=== PATIENT | male | born 1995 | race Caucasian/White ===

== ENCOUNTER 2017-02-04 18:57 | Emergency (ER) | payer BC ==
[~2017-02-04] VITALS: Ht 172.7 cm; Wt 164.7 kg
[~2017-02-04 18:57] MED LIST: BUPR150T11 PO; CITA40TA5 PO; CYCL10TA2 PO; NAPR500T8 PO; PAIN; PHEN30CA2 PO; TRAM50TA PO; anti inflammatory; muscle relaxer
[2017-02-04 19:15] VITALS: BP 116/63
[2017-02-04] MEDS ORDERED: PRED20TA PO (19:54)
[2017-02-04] MEDS ORDERED: CYCL10TA2 PO (19:54)
--- NOTE | 2017-02-04 19:55 | PHYS DOC ---
Past Medical History Past Medical History: Bipolar, Depression, Sciatica, Schizophrenia, Other Additional Past Medical Histor: Asperger's syndrome, OCD,scoliosis Past Surgical History: No Surgical History Alcohol Use: None Drug Use: Marijuana Adult General Chief Complaint Chief Complaint: PAIN CONTROL [facility] HPI Patient is a 21 year old male presents to the emergency department stating that he's had lower back pain for the last 2 days. He states that it's on bilateral sides and goes down into his legs. He states that he's been taken Flexeril that he's had for over a year. Patient had been seen pain management back in 2016 in which patient states that he stopped seeing them because they wanted to do albuterol injections and he was afraid of being paralyzed. They were going to prevent some physical therapy doing water exercises with girlfriend at the bedside stating that they were unable to get to the appointments as they depend on the grandmothers vehicle for transportation. Patient was able to stand up to show me where his pain and discomfort was. Patient has 2+ peripheral pulses in bilateral legs. Patient states he does not have a PCP at the current time. Denies any numbness or tingling down to his lower extremities. He is able to ambulate with a good steady gait. Review of Systems Review of Systems Constitutional: Denies fever or chills [] Eyes: Denies change in visual acuity, redness, or eye pain [] HENT: Denies nasal congestion or sore throat [] Respiratory: Denies cough or shortness of breath [] Cardiovascular: No additional information not addressed in HPI [] GI: Denies abdominal pain, nausea, vomiting, bloody stools or diarrhea [] : Denies dysuria or hematuria [] Musculoskeletal: lower back pain denies joint pain [] Integument: Denies rash or skin lesions [] Neurologic: Denies headache, focal weakness or sensory changes [] Endocrine: Denies polyuria or polydipsia [] Allergies Allergies Allergies Coded Allergies Type Severity Reaction Last Updated Verified No Known Drug Allergies 11/30/13 No Physical Exam Physical Exam Constitutional: Well developed, well nourished, no acute distress, non-toxic appearance. [] HENT: Normocephalic, atraumatic, bilateral external ears normal, oropharynx moist, no oral exudates, nose normal. [] Eyes: PERRLA, EOMI, conjunctiva normal, no discharge. [] Neck: Normal range of motion, no tenderness, supple, no stridor. [] Cardiovascular:Heart rate regular rhythm, no murmur [] Lungs & Thorax: Bilateral breath sounds clear to auscultation [] Abdomen: Bowel sounds normal, soft, no tenderness, no masses, no pulsatile masses. [] Skin: Warm, dry, no erythema, no rash. [] Back: No thoracic spine no lumbar spine tenderness noted, no crepitus no deformities, no step-offs noted. Patient was noted to have pain in bilateral lower back. Extremities: No tenderness, no cyanosis, no clubbing, ROM intact, no edema. [] Neurologic: Alert and oriented X 3, normal motor function, normal sensory function, no focal deficits noted. [] Psychologic: Affect normal, judgement normal, mood normal. [] Current Patient Data Vital Signs Vital Signs Date Time Temp Pulse Resp B/P (MAP) Pulse Ox O2 Delivery O2 Flow Rate FiO2 02/04/17 19:15 98.8 79 20 98 Room Air 98.8 EKG EKG [] Radiology/Procedures Radiology/Procedures [] Course & Med Decision Making Course & Med Decision Making Pertinent Labs and Imaging studies reviewed. (See chart for details) Spoke with patient regards to using Flexeril to help as a muscle relaxer. Also spoke with regards to using ibuprofen 800 mg every 8 hours. He'll be provided with a steroid, prednisone in which she can take at home. Patient was also encouraged to follow-up with his primary care physician. Patient agrees with discharge instructions, treatment regimens and follow-up recommendations. Signs and symptoms to return back to emergency department as been provided. Patient will be provided with a list of phone numbers to follow up with. Patient was also instructed Flexeril will cause drowsiness do not take any be alert and oriented. [] Dragon Disclaimer Dragon Disclaimer This electronic medical record was generated, in whole or in part, using a voice recognition dictation system. Departure Departure Impression: Primary Impression: Back pain Disposition: HOME, SELF-CARE Condition: STABLE Referrals: NO PCP (PCP) Patient Instructions: Back Pain, Adult, [id number] Additional Instructions: Activity as tolerated Medication as prescribed Ibuprofen 800 mg every 8 hours with food, stop taking if you develop upset stomach Flexeril will cause drowsiness do not take if you need to be alert and oriented Ice packs on 20 minutes and off 20 minutes several times a day Followup with your primary care provider in 5-7 days Return to emergency department as needed for signs and symptoms that become worse. Scripts Prednisone (PREDNISONE) 20 Mg Tablet 40 MG PO DAILY for 7 Days, #14 TAB Prov: DHAVAL ELLIOTT APRN 02/04/17 Cyclobenzaprine Hcl (CYCLOBENZAPRINE HCL) 10 Mg Tablet 10 MG PO TID, #30 TAB Prov: DHAVAL ELLIOTT APRN 02/04/17 DHAVAL ELLIOTT APRN Feb 04, 2017 19:55
== END 2017-02-04 20:03 | disposition home or self-care (01) ==
LOC: ER 18:57
DX: M54.5 Low back pain (principal); M41.9 Scoliosis, unspecified; F20.9 Schizophrenia, unspecified; F42.9 Obsessive-compulsive disorder, unspecified; F84.5 Asperger's syndrome; F31.9 Bipolar disorder, unspecified; F12.10 Cannabis abuse, uncomplicated
CPT/HCPCS: 99283

== ENCOUNTER 2019-08-30 18:25 | Emergency (ER) | payer MEDICAID, BC ==
[~2019-08-30] VITALS: Ht 177.8 cm; Wt 159.7 kg
[~2019-08-30 18:25] MED LIST changes: -PHEN30CA2 PO; +PHEN30CA3 PO; +PRED20TA PO
[2019-08-30 18:39] VITALS: BP 139/84
[2019-08-30] MEDS ORDERED: CYCL10TA2 PO (19:06)
[2019-08-30] MEDS ORDERED: IBUP-1007 PO (19:06)
--- NOTE | 2019-08-30 19:06 | PHYS DOC ---
Past Medical History Past Medical History: Bipolar, Depression, Sciatica, Schizophrenia, Other Additional Past Medical Histor: Asperger's syndrome, OCD,scoliosis,CHRONIC BACK PAIN (JESUS VELÁZQUEZ APRN) Past Surgical History: No Surgical History (JESUS VELÁZQUEZ APRN) Additional Information: SMOKES 4 TO 5 CIGARS DAILY Alcohol Use: None Drug Use: Marijuana (JESUS VELÁZQUEZ APRN) Attending Signature I have participated in the care of this patient and I have reviewed and agree with all pertinent clinical information above including history, exam, and recommendations. (APRYL LOUIE MD) Adult General Chief Complaint Chief Complaint: BACK PAIN OR INJURY HPI HPI Patient is a 23 year old male who presents with [lower back pain. Patient reports he has a history of lower back pain, has been told he has scoliosis in the past, had a primary care he was follow-up with and then she medications, but they told him he does not have scoliosis and did not see him anymore. Patient reports he taken 2 mg ibuprofen this morning which did some double little bit of discomfort, however he continues to have discomfort similar to what he normally has. Reports he has flareups like this every 2 months. States no trauma, no lifting, denies any change in bowel or bladder habits, does report he had diarrhea recently due to a viral illness. Denies paresthesia to legs] He is ambulatory, able to stand location of discomfort. (JESUS VELÁZQUEZ APRN) Review of Systems Review of Systems Constitutional: Denies fever or chills [] Respiratory: Denies cough or shortness of breath [] Cardiovascular: No additional information not addressed in HPI [] GI: Denies abdominal pain, nausea, vomiting, bloody stools denies change in bowel or bladder habits[] : Denies dysuria or hematuria [] Musculoskeletal: Reports mid lower back pain somewhat what he usually exp eriences dyspnea wears[] Integument: Denies rash or skin lesions [] Neurologic: Denies headache, focal weakness or sensory changes [] Endocrine: Denies polyuria or polydipsia [] All other systems were reviewed and found to be within normal limits, except as documented in this note. (JESUS VELÁZQUEZ APRN) Current Medications Current Medications Current Medications Medications (Trade) Dose Ordered Sig/Mindi Start Time Stop Time Status Last Admin Dose Admin Ketorolac Tromethamine (Toradol Im) 60 mg 1X ONCE 08/30/19 19:00 08/30/19 19:03 DC 08/30/19 19:15 60 MG Orphenadrine Citrate (Norflex) 60 mg 1X ONCE 08/30/19 19:00 08/30/19 19:03 DC 08/30/19 19:15 60 MG (APRYL LOUIE MD) Allergies Allergies Allergies Coded Allergies Type Severity Reaction Last Updated Verified No Known Drug Allergies 11/30/13 No (APRYL LOUIE MD) Physical Exam Physical Exam Constitutional: Well developed, well nourished, no acute distress, non-toxic appearance. Grossly Obese[] Neck: Normal range of motion, no tenderness, supple, no stridor. [] Cardiovascular:Heart rate regular rhythm, no murmur [] Lungs & Thorax: Bilateral breath sounds clear to auscultation [] Abdomen: Bowel sounds normal, soft, no tenderness, no masses, no pulsatile masses. [] Skin: Warm, dry, no erythema, no rash. [] Back: Noted scoliosis and curvature to spine to the patient's right. No bony tenderness. Minimal tenderness noted on palpation to the spinal processes and bilateral sides of spine Extremities: No tenderness, no cyanosis, no clubbing, ROM intact, no edema. full ROM to extremities [] Neurologic: Alert and oriented X 3, normal motor function, normal sensory function, no focal deficits noted. [] Psychologic: Affect normal, judgement normal, mood normal. [] (JESUS VELÁZQUEZ APRN) Current Patient Data Vital Signs Vital Signs Date Time Temp Pulse Resp B/P (MAP) Pulse Ox O2 Delivery O2 Flow Rate FiO2 08/30/19 18:39 97.9 90 19 139/84 (102) 96 Room Air 97.9 (APRYL LOUIE MD) EKG EKG [] (JESUS VELÁZQUEZ APRN) Radiology/Procedures Radiology/Procedures [] (JESUS VELÁZQUEZ APRN) Course & Med Decision Making Course & Med Decision Making Pertinent Labs and Imaging studies reviewed. (See chart for details) [Discussed with patient importance of following up with his primary care provider or consider seeing a back specialist indeterminant want to do further studying. He does report he had consult with the pain specialist who wanted to do injection on his back, but he did not want to do that for fear of permanent paralysis. Discussed he does have visible scoliosis when looking at his back and this is likely the cause of his back pain. He needs to follow with primary ca re, we'll provide a short course of muscle relaxants, anti-inflammatories.] (JESUS VELÁZQUEZ APRN) Dragon Disclaimer Dragon Disclaimer This electronic medical record was generated, in whole or in part, using a voice recognition dictation system. (JESUS VELÁZQUEZ APRN) Departure Departure Impression: Primary Impression: Back pain Additional Impression: Scoliosis Disposition: 01 HOME, SELF-CARE Condition: STABLE Referrals: MANUEL ZAMARRIPA MD (PCP) Patient Instructions: Back Pain, Adult, Scoliosis Additional Instructions: As we discussed, continue take your medications for discomfort. Try to get into a primary care provider and see if they wanted to refer you for any further spinal evaluation due to your scoliosis. Scripts Ibuprofen (IBUPROFEN) 600 Mg Tablet 600 MG PO PRN Q6HRS PRN for INFLAMMATION, #20 TAB Prov: JESUS VELÁZQUEZ APRN 08/30/19 Cyclobenzaprine Hcl (CYCLOBENZAPRINE HCL) 10 Mg Tablet 10 MG PO TID, #15 TAB Prov: JESUS VELÁZQUEZ APRN 08/30/19 Problem Qualifiers Primary Impression: Back pain Back pain location: low back pain Chronicity: chronic Back pain laterality: midline Sciatica presence: without sciatica Qualified Codes: M54.5 - Low back pain; G89.29 - Other chronic pain Additional Impression: Scoliosis Scoliosis type: unspecified scoliosis Spinal region: thoracolumbar Qualified Codes: M41.9 - Scoliosis, unspecified JESUS VELÁZQUEZ APRN Aug 30, 2019 19:06 APRYL LOUIE MD Aug 31, 2019 07:53
[2019-08-30] MEDS: KETOROLAC 60 MG/2 ML VIAL. IM ONE (19:15)
[2019-08-30] MEDS: ORPHENADRINE CITRATE 60 MG/2 ML VIAL. IM ONE (19:15)
== END 2019-08-30 19:35 | disposition home or self-care (01) ==
LOC: ER 18:25
DX: M54.5 Low back pain (principal); G89.29 Other chronic pain; M41.9 Scoliosis, unspecified; F20.9 Schizophrenia, unspecified; F31.9 Bipolar disorder, unspecified; F84.5 Asperger's syndrome; F42.8 Other obsessive-compulsive disorder; F17.210 Nicotine dependence, cigarettes, uncomplicated
CPT/HCPCS: 96372; 99284; J1885; J2360

== ENCOUNTER 2019-12-29 20:01 | Emergency (ER) | payer BC, MEDICAID ==
[~2019-12-29] VITALS: Ht 177.8 cm; Wt 161.3 kg
[~2019-12-29 20:01] MED LIST changes: +IBUP-1007 PO
[2019-12-29] MEDS ORDERED: IV NORMAL SALINE 1000ML BAG 1,000 ML IV ONE (22:30)
[2019-12-29 22:39] LABS: BASO # 0.1 x10^3/uL (0.0-0.2); BASO % 1 % (0-3); EOS # 0.3 x10^3/uL (0.0-0.7); EOS % 2 % (0-3); HEMATOCRIT 49.6 % (39.0-53.0); HEMOGLOBIN 16.6 g/dL (13.0-17.5); LYMPH # 2.2 x10^3/uL (1.0-4.8); LYMPH % 20 % (24-48); MEAN CORPUSCULAR HEMOGLOBIN 27 pg (25-35); MEAN CORPUSCULAR HGB CONC 33 g/dL (31-37); MEAN CORPUSCULAR VOLUME 82 fL (79-100); MONO % 9 % (0-9); NEUT # 7.6 x10^3/uL (1.8-7.7); NEUT % 68 % (31-73); PLATELET COUNT 401 x10^3/uL (140-400); RED BLOOD COUNT 6.06 x10^6/uL (4.30-5.70); RED CELL DISTRIBUTION WIDTH 14.8 % (11.5-14.5); WHITE BLOOD COUNT 11.1 x10^3/uL (4.0-11.0)
[2019-12-29 22:51] LABS: CREATININE 0.9 mg/dL (0.7-1.3); GFR 102.8; POTASSIUM 4.3 mmol/L (3.5-5.1)
[2019-12-29 22:58] LABS: ALBUMIN 3.6 g/dL (3.4-5.0); ALBUMIN/GLOBULIN RATIO 0.9 (1.0-1.7); MAGNESIUM 1.8 mg/dL (1.8-2.4); TOTAL BILIRUBIN 0.7 mg/dL (0.2-1.0); TOTAL PROTEIN 7.6 g/dL (6.4-8.2)
--- NOTE | 2019-12-29 23:12 | RAD ---
PORTABLE CHEST 1V Clinical Indication: Syncope Comparison: None. Findings: The cardiomediastinal silhouette is normal. Left perihilar linear opacity may be atelectasis or early infiltrate. There is no pneumothorax. No pleural effusion is appreciated. No acute bone abnormality. IMPRESSION: Left perihilar linear opacity may be atelectasis or early infiltrate. Electronically signed by: Kyler Jasmine MD (12/29/2019 11:09 PM) [id number]
--- NOTE | 2019-12-29 23:36 | PHYS DOC ---
Past Medical History Past Medical History: Bipolar, Depression, Sciatica, Schizophrenia, Other Additional Past Medical Histor: Asperger's syndrome, OCD,scoliosis,CHRONIC BACK PAIN Past Surgical History: No Surgical History Smoking Status: Current Every Day Smoker Additional Information: 0.5/PPD Alcohol Use: None Drug Use: Marijuana General Adult EDM: Chief Complaint: DIZZY/LIGHT HEADED HPI: HPI: Patient is a 24 year old male who presents with report of syncopal episodes at home over the last 4 days. Patient states that he has had approximately 4-5 syncopal episodes per day for the last 4 days. He states that it generally happens when he stands up from a lying down position. He states that he becomes very lightheaded and the next thing he knows he is waking up on the floor. He denies any injuries. He denies any headache, chest pain, shortness of breath, nausea or vomiting. Patient states that he was told by [facility] primary care that he needed to come to the emergency room to get an EKG. [] Review of Systems: Review of Systems: Constitutional: Denies fever or chills. [] Respiratory: Denies cough or shortness of breath. [] Cardiovascular: Denies chest pain or edema. Positive syncope. [] GI: Denies abdominal pain, nausea, vomiting or diarrhea. [] Neurologic: Denies headache, focal weakness or sensory changes. [] A full 10 point review of systems has been reviewed and is otherwise negative. Heart Score: Risk Factors: Risk Factors: DM, Current or recent (<one month) smoker, HTN, HLP, family history of CAD, obesity. Risk Scores: Score 0 - 3: 2.5% MACE over next 6 weeks - Discharge Home Score 4 - 6: 20.3% MACE over next 6 weeks - Admit for Clinical Observation Score 7 - 10: 72.7% MACE over next 6 weeks - Early Invasive Strategies Current Medications: Current Medications Medications (Trade) Dose Ordered Sig/Mindi Start Time Stop Time Status Last Admin Dose Admin Sodium Chloride 1,000 ml @ 1,000 mls/hr 1X ONCE 12/29/19 22:30 12/29/19 23:29 DC 12/29/19 22:30 1,000 MLS/HR Allergies: Allergies: Allergies Coded Allergies Type Severity Reaction Last Updated Verified No Known Drug Allergies 11/30/13 No Physical Exam: PE: Constitutional: Well developed, well nourished, no acute distress, non-toxic appearance. [] HENT: Normocephalic, atraumatic, bilateral external ears normal, oropharynx moist, no oral exudates, nose normal. [] Eyes: PERRLA, EOMI, conjunctiva normal, no discharge. [] Neck: Normal range of motion, no tenderness, supple, no stridor. [] Cardiovascular: Regular rate and rhythm [] Lungs & Thorax: Bilateral breath sounds clear to auscultation [] Abdomen: Bowel sounds normal, soft, no tenderness. [] Skin: Warm, dry, no erythema, no rash. [] Extremities: No tenderness, no cyanosis, no clubbing, ROM intact, no edema. [] Neurologic: Alert and oriented X 3, no focal deficits noted. [] Current Patient Data: Labs: Laboratory Tests Test 12/29/19 22:28 White Blood Count 11.1 x10^3/uL (4.0-11.0) H Red Blood Count 6.06 x10^6/uL (4.30-5.70) H Hemoglobin 16.6 g/dL (13.0-17.5) Hematocrit 49.6 % (39.0-53.0) Mean Corpuscular Volume 82 fL (79-100) Mean Corpuscular Hemoglobin 27 pg (25-35) Mean Corpuscular Hemoglobin Concent 33 g/dL (31-37) Red Cell Distribution Width 14.8 % (11.5-14.5) H Platelet Count 401 x10^3/uL (140-400) H Neutrophils (%) (Auto) 68 % (31-73) Lymphocytes (%) (Auto) 20 % (24-48) L Monocytes (%) (Auto) 9 % (0-9) Eosinophils (%) (Auto) 2 % (0-3) Basophils (%) (Auto) 1 % (0-3) Neutrophils # (Auto) 7.6 x10^3/uL (1.8-7.7) Lymphocytes # (Auto) 2.2 x10^3/uL (1.0-4.8) Monocytes # (Auto) 1.0 x10^3/uL (0.0-1.1) Eosinophils # (Auto) 0.3 x10^3/uL (0.0-0.7) Basophils # (Auto) 0.1 x10^3/uL (0.0-0.2) Sodium Level 141 mmol/L (136-145) Potassium Level 4.3 mmol/L (3.5-5.1) Chloride Level 103 mmol/L (98-107) Carbon Dioxide Level 28 mmol/L (21-32) Anion Gap 10 (6-14) Blood Urea Nitrogen 13 mg/dL (8-26) Creatinine 0.9 mg/dL (0.7-1.3) Estimated GFR (Cockcroft-Gault) 102.8 BUN/Creatinine Ratio 14 (6-20) Glucose Level 74 mg/dL (70-99) Calcium Level 9.0 mg/dL (8.5-10.1) Magnesium Level 1.8 mg/dL (1.8-2.4) Total Bilirubin 0.7 mg/dL (0.2-1.0) Aspartate Amino Transferase (AST) 26 U/L (15-37) Alanine Aminotransferase (ALT) 44 U/L (16-63) Alkaline Phosphatase 99 U/L (46-116) Troponin I Quantitative < 0.017 ng/mL (0.000-0.055) Total Protein 7.6 g/dL (6.4-8.2) Albumin 3.6 g/dL (3.4-5.0) Albumin/Globulin Ratio 0.9 (1.0-1.7) L Thyroid Stimulating Hormone (TSH) 1.196 uIU/mL (0.358-3.74) Laboratory Tests 12/29/19 22:28 Laboratory Tests 12/29/19 22:28 Vital Signs: Vital Signs Date Time Temp Pulse Resp B/P (MAP) Pulse Ox O2 Delivery O2 Flow Rate FiO2 12/29/19 22:30 90 96 12/29/19 20:20 98.8 22 134/82 (99) Room Air 98.8 EKG: EKG: EKG demonstrates normal sinus rhythm with rate of 85. [] Radiology/Procedures: Radiology/Procedures: [] Impression: PROCEDURE: PORTABLE CHEST 1V PORTABLE CHEST 1V Clinical Indication: Syncope Comparison: None. Findings: The cardiomediastinal silhouette is normal. Left perihilar linear opacity may be atelectasis or early infiltrate. There is no pneumothorax. No pleural effusion is appreciated. No acute bone abnormality. IMPRESSION: Left perihilar linear opacity may be atelectasis or early infiltrate. Electronically signed by: Kyler Jasmine MD (12/29/2019 11:09 PM) [id number] Course & Med Decision Making: Course & Med Decision Making Pertinent Labs and Imaging studies reviewed. (See chart for details) Patient moved to room upon arrival was evaluated by ER medical staff after which an IV was established and blood work was drawn. Orthostatic vital signs were obtained and were unremarkable. Patient's blood work is returned unremarkable. Findings were reviewed with the patient and I did discuss admission of the patient for further evaluation with cardiology; however, patient indicates that he does not want to be admitted and wants to be discharged home. He indicates that he will follow-up with his primary care provider tomorrow morning. Dragon Disclaimer: Dragon Disclaimer: This electronic medical record was generated, in whole or in part, using a voice recognition dictation system. Departure Departure Impression: Primary Impression: Syncope Qualified Codes: R55 - Syncope and collapse Disposition: HOME, SELF-CARE Condition: STABLE Referrals: MANUEL ZAMARRIPA MD (PCP) Patient Instructions: Syncope Additional Instructions: Call to schedule follow-up appointment with your primary provider tomorrow. SIENA BOBO Jr. DO December 29, 2019 23:36
[2019-12-29 23:50] VITALS: BP 137/88
--- NOTE | 2019-12-30 06:54 | EKG ---
[facility] [address] [place] [address] Test Date: 2019-12-29 Test Time: 20:29:02 Pat Name: CLARY FLOYD Department: Room: Gender: M Resin Shaver: : 1995 Requested By: SIENA BOBO Order Number: [id number] Reading MD: Francisco Javier Talbot Measurements Intervals Apex Rate: 85 P: 28 NJ: 156 QRS: -2 QRSD: 98 T: 22 QT: 344 QTc: 414 Interpretive Statements SINUS RHYTHM LEFTWARD AXIS Electronically Signed On 12-30-2019 13:40:07 CDT by Francisco Javier Talbot
== END 2019-12-29 23:51 | disposition home or self-care (01) ==
LOC: ER 20:01
DX: R55 Syncope and collapse (principal); F31.9 Bipolar disorder, unspecified; F20.9 Schizophrenia, unspecified; G89.29 Other chronic pain; F17.200 Nicotine dependence, unspecified, uncomplicated
CPT/HCPCS: 36415; 71045; 80053; 83735; 84443; 84484; 85025; 93005; 96360; 99285; J7030

== ENCOUNTER 2020-06-08 17:04 | Emergency (ER) | payer BC, MEDICAID ==
[~2020-06-08] VITALS: Ht 180.3 cm; Wt 154.0 kg
[2020-06-08 17:54] LABS: BASO % 1 % (0-3); EOS # 0.1 x10^3/uL (0.0-0.7); EOS % 1 % (0-3); HEMATOCRIT 45.4 % (39.0-53.0); HEMOGLOBIN 15.3 g/dL (13.0-17.5); LYMPH % 22 % (24-48); MEAN CORPUSCULAR HEMOGLOBIN 28 pg (25-35); MEAN CORPUSCULAR HGB CONC 34 g/dL (31-37); MEAN CORPUSCULAR VOLUME 82 fL (79-100); MONO # 0.5 x10^3/uL (0.0-1.1); MONO % 6 % (0-9); NEUT # 6.3 x10^3/uL (1.8-7.7); NEUT % 71 % (31-73); PLATELET COUNT 344 x10^3/uL (140-400); RED BLOOD COUNT 5.56 x10^6/uL (4.30-5.70); RED CELL DISTRIBUTION WIDTH 13.9 % (11.5-14.5); WHITE BLOOD COUNT 8.9 x10^3/uL (4.0-11.0)
[2020-06-08 18:26] LABS: CALCIUM 9.4 mg/dL (8.5-10.1); CREATININE 1.2 mg/dL (0.7-1.3); GFR 73.8; POTASSIUM 3.9 mmol/L (3.5-5.1)
[2020-06-08 18:30] LABS: SALIC 3.7 mg/dL (2.8-20.0)
[2020-06-08 18:31] LABS: ACETAMIN < 2 mcg/ml (10-30)
[2020-06-08 18:32] LABS: ALBUMIN 3.7 g/dL (3.4-5.0); MAGNESIUM 1.8 mg/dL (1.8-2.4); TOTAL BILIRUBIN 0.8 mg/dL (0.2-1.0); TOTAL PROTEIN 7.5 g/dL (6.4-8.2)
[2020-06-08 18:38] LABS: BILIRUBIN,URINE NEGATIVE (NEG); CLARITY,URINE CLEAR; COLOR,URINE YELLOW; NITRITE,URINE NEGATIVE (NEG); PROTEIN,URINE NEGATIVE (NEG-TRACE)
[2020-06-08 18:40] LABS: BACTERIA,URINE 0 /HPF (0-FEW); RBC,URINE 0 /HPF (0-2)
[2020-06-08 18:44] LABS: BARBITURATES NEG (NEG); BENZODIAZEPINES NEG (NEG); CANNABINOIDS NEG (NEG); COCAINE NEG (NEG); METHADONE NEG (NEG); OPIATES NEG (NEG); PHENCYCLIDINE NEG (NEG)
[2020-06-08 18:45] LABS: AMPHETAMINE/METHAMPHETAMINE NEG (NEG)
--- NOTE | 2020-06-08 19:36 | RAD ---
EXAM: CHEST ONE VIEW. HISTORY: Chest pain. COMPARISON: 12/29/2019. FINDINGS: A frontal view of the chest is obtained. There are no confluent infiltrates. There is no pneumothorax or pleural effusion. The heart is not enlarged. IMPRESSION: 1. No confluent infiltrates. Electronically signed by: Isaiah Melvin MD (06/08/2020 7:34 PM) [facility]
--- NOTE | 2020-06-08 19:57 | PHYS DOC ---
Past Medical History Past Medical History: Anxiety, Bipolar, Depression, Sciatica, Schizophrenia, Other Additional Past Medical Histor: Asperger's syndrome, OCD,scoliosis,CHRONIC BACK PAIN Past Surgical History: No Surgical History Smoking Status: Current Every Day Smoker Alcohol Use: None Drug Use: Marijuana General Adult EDM: Chief Complaint: ANXIETY/PANIC ATTACK HPI: HPI: Patient is a 24 year old male with history of anxiety, bipolar, depression, schizophrenia, who presents to the ED today complaining of anxiety. Patient reports 2 weeks ago he had to clean his house with chlorine and ammonia. He states he had to clean his house because he was told if he does not exterminate or clean his house he will loose his kids. He states 4 hours ago he developed substernal chest pain, epigastric pain, and neck pain and believes it is from the exposure to cleaning agents 2 weeks ago. Patient denies any fever. Denies any coughing or congestion. He states this feels like his chronic anxiety episodes. Review of Systems: Review of Systems: Constitutional: Denies fever or chills. [] Eyes: Denies change in visual acuity. [] HENT: Denies nasal congestion or sore throat. [] Respiratory: Denies cough or shortness of breath. [] Cardiovascular: Reports chest pain GI: Reports epigastric pain, denies nausea, vomiting, bloody stools or diarrhea. [] : Denies dysuria. [] Musculoskeletal: Reports neck pain. Denies back pain ] Integument: Denies rash. [] Neurologic: Denies headache, focal weakness or sensory changes. [] Endocrine: Denies polyuria or polydipsia. [] Lymphatic: Denies swollen glands. [] Psychiatric: Reports anxiety. [] Heart Score: Risk Factors: Risk Factors: DM, Current or recent (<one month) smoker, HTN, HLP, family history of CAD, obesity. Risk Scores: Score 0 - 3: 2.5% MACE over next 6 weeks - Discharge Home Score 4 - 6: 20.3% MACE over next 6 weeks - Admit for Clinical Observation Score 7 - 10: 72.7% MACE over next 6 weeks - Early Invasive Strategies Allergies: Allergies: Allergies Coded Allergies Type Severity Reaction Last Updated Verified No Known Drug Allergies 11/30/13 No Physical Exam: PE: Constitutional: Well developed, well nourished, no acute distress, non-toxic appearance. [] HENT: Normocephalic, atraumatic, bilateral external ears normal, oropharynx moist, no oral exudates, nose normal. [] Eyes: PERRLA, EOMI, conjunctiva normal, no discharge. [] Neck: Normal range of motion, no tenderness, supple, no stridor. [] Cardiovascular:Heart rate regular rhythm, no murmur [] Lungs & Thorax: Bilateral breath sounds clear to auscultation [] Abdomen: Bowel sounds normal, soft, no tenderness, no masses, no pulsatile masses. [] Skin: Warm, dry, no erythema, no rash. [] Back: No tenderness, no CVA tenderness. [] Extremities: No tenderness, no cyanosis, no clubbing, ROM intact, no edema. [] Neurologic: Alert and oriented X 3, normal motor function, normal sensory function, no focal deficits noted. [] Psychologic: Flat affect, anxious Current Patient Data: Labs: Laboratory Tests Test 06/08/20 17:15 06/08/20 18:20 White Blood Count 8.9 x10^3/uL (4.0-11.0) Red Blood Count 5.56 x10^6/uL (4.30-5.70) Hemoglobin 15.3 g/dL (13.0-17.5) Hematocrit 45.4 % (39.0-53.0) Mean Corpuscular Volume 82 fL (79-100) Mean Corpuscular Hemoglobin 28 pg (25-35) Mean Corpuscular Hemoglobin Concent 34 g/dL (31-37) Red Cell Distribution Width 13.9 % (11.5-14.5) Platelet Count 344 x10^3/uL (140-400) Neutrophils (%) (Auto) 71 % (31-73) Lymphocytes (%) (Auto) 22 % (24-48) L Monocytes (%) (Auto) 6 % (0-9) Eosinophils (%) (Auto) 1 % (0-3) Basophils (%) (Auto) 1 % (0-3) Neutrophils # (Auto) 6.3 x10^3/uL (1.8-7.7) Lymphocytes # (Auto) 2.0 x10^3/uL (1.0-4.8) Monocytes # (Auto) 0.5 x10^3/uL (0.0-1.1) Eosinophils # (Auto) 0.1 x10^3/uL (0.0-0.7) Basophils # (Auto) 0.0 x10^3/uL (0.0-0.2) Sodium Level 142 mmol/L (136-145) Potassium Level 3.9 mmol/L (3.5-5.1) Chloride Level 107 mmol/L (98-107) Carbon Dioxide Level 22 mmol/L (21-32) Anion Gap 13 (6-14) Blood Urea Nitrogen 12 mg/dL (8-26) Creatinine 1.2 mg/dL (0.7-1.3) Estimated GFR (Cockcroft-Gault) 73.8 BUN/Creatinine Ratio 10 (6-20) Glucose Level 109 mg/dL (70-99) H Calcium Level 9.4 mg/dL (8.5-10.1) Magnesium Level 1.8 mg/dL (1.8-2.4) Total Bilirubin 0.8 mg/dL (0.2-1.0) Aspartate Amino Transferase (AST) 33 U/L (15-37) Alanine Aminotransferase (ALT) 37 U/L (16-63) Alkaline Phosphatase 92 U/L (46-116) Troponin I Quantitative < 0.017 ng/mL (0.000-0.055) UH-Lrm-[id number]-Type Natriuretic Peptide 122 pg/mL (0-124) Total Protein 7.5 g/dL (6.4-8.2) Albumin 3.7 g/dL (3.4-5.0) Albumin/Globulin Ratio 1.0 (1.0-1.7) Lipase 119 U/L (73-393) Thyroid Stimulating Hormone (TSH) 1.164 uIU/mL (0.358-3.74) Salicylates Level 3.7 mg/dL (2.8-20.0) Salicylate Last Dose Date Unknown Salicylate Last Dose Time Unknown Acetaminophen Level < 2 mcg/ml (10-30) L Acetaminophen Last Dose Date Unknown Acetaminophen Last Dose Time Unknown Urine Collection Type Unknown Urine Color Yellow Urine Clarity Clear Urine pH 8.0 (<5.0-8.0) Urine Specific [place] 1.020 (1.000-1.030) Urine Protein Negative mg/dL (NEG-TRACE) Urine Glucose (UA) Negative mg/dL (NEG) Urine Ketones (Stick) Negative mg/dL (NEG) Urine Blood Negative (NEG) Urine Nitrite Negative (NEG) Urine Bilirubin Negative (NEG) Urine Urobilinogen Dipstick 1.0 mg/dL (0.2 mg/dL) Urine Leukocyte Esterase Negative (NEG) Urine RBC 0 /HPF (0-2) Urine WBC 1-4 /HPF (0-4) Urine Squamous Epithelial Cells Few /LPF Urine Bacteria 0 /HPF (0-FEW) Urine Mucus Marked /LPF Urine Opiates Screen Neg (NEG) Urine Methadone Screen Neg (NEG) Urine Barbiturates Neg (NEG) Urine Phencyclidine Screen Neg (NEG) Urine Amphetamine/Methamphetamine Neg (NEG) Urine Benzodiazepines Screen Neg (NEG) Urine Cocaine Screen Neg (NEG) Urine Cannabinoids Screen Neg (NEG) Urine Ethyl Alcohol Neg (NEG) Laboratory Tests 06/08/20 17:15 Laboratory Tests 06/08/20 17:15 Vital Signs: Vital Signs Date Time Temp Pulse Resp B/P (MAP) Pulse Ox O2 Delivery O2 Flow Rate FiO2 06/08/20 17:21 98.1 83 22 149/68 (95) 99 Room Air 98.1 EKG: EKG: [] Radiology/Procedures: Radiology/Procedures: []PROCEDURE: CHEST AP ONLY EXAM: CHEST ONE VIEW. HISTORY: Chest pain. COMPARISON: 12/29/2019. FINDINGS: A frontal view of the chest is obtained. There are no confluent infiltrates. There is no pneumothorax or pleural effusion. The heart is not enlarged. IMPRESSION: 1. No confluent infiltrates. Electronically signed by: Isaiah Melvin MD (06/08/2020 7:34 PM) [facility] DICTATED and SIGNED BY: MALI MELVIN MD DATE: 06/08/201933 Course & Med Decision Making: Course & Med Decision Making Pertinent Labs and Imaging studies reviewed. (See chart for details) This is a 24-year-old male patient presented to the ED today with what appears to be an anxiety episode that began 4 hours ago. Patient presents complaining of pain to her chest, epigastric region, and neck that began 4 hours ago. He believes this is related to the cleaning agents he was exposed to 2 weeks ago which included ammonia and chlorine that he had to use to clean his house. Chest x-ray is negative, labs are negative, labs are negative, EKG is negative. Discharge patient to home. Reassured him. Recommended following up with [facility]. Deanne Disclaimer: Deanne Disclaimer: This electronic medical record was generated, in whole or in part, using a voice recognition dictation system. Departure Departure Impression: Primary Impression: Anxiety Disposition: 01 DC HOME SELF CARE/HOMELESS Condition: STABLE Referrals: MANUEL ZAMARRIPA MD (PCP) Follow-up in 1 week with your primary care doctor or [facility] Patient Instructions: Anxiety and Panic Attacks, [id number] Additional Instructions: You were evaluated in the emergency room, your symptoms are more related to anxiety. We highly recommend you follow-up with [facility] SANDRO LOPES APRN Jun 08, 2020 19:57
[2020-06-08 20:30] VITALS: BP 132/81
== END 2020-06-08 20:59 | disposition home or self-care (01) ==
LOC: ER 17:04
DX: F41.9 Anxiety disorder, unspecified (principal); R07.2 Precordial pain; R10.13 Epigastric pain; M54.2 Cervicalgia; F32.9 Major depressive disorder, single episode, unspecified; F20.9 Schizophrenia, unspecified; G89.29 Other chronic pain; F17.200 Nicotine dependence, unspecified, uncomplicated; F12.90 Cannabis use, unspecified, uncomplicated
CPT/HCPCS: 36415; 71045; 80053; 80307; 80329; 81001; 83690; 83735; 83880; 84443; 84484; 85025; 99284; 99285; G0480